=== PATIENT | male | born 1995 | race Caucasian/White ===

== ENCOUNTER 2018-03-06 14:17 | Emergency (ER) | payer BC ==
--- NOTE | 2018-03-06 14:33 | EDPHY ---
General Time Seen by Provider: 03/06/18 14:21 Narrative: CHIEF COMPLAINT: Manic HISTORY OF PRESENT ILLNESS: Patient presents by EMS and is seen at time arrival. He is reportedly on M1 hold due to manic behavior. He arrives from [facility] having been evaluated. He states that he has felt manic since this morning. He says that he has been taking his medications as prescribed other than Adderall. He is not taking this for 2 days. He denies any hallucinations He denies any thoughts of harm himself or others. He has reportedly recently be started on risperidone feels this is not working for him. He denies any lithium use. He does report cocaine use 3 days ago, marijuana use this morning. He states that his grandmother took him to [facility] location and then [facility] for help this morning. No modifying factors. No other associated complaints. PSYCHIATRIC DIAGNOSES: Bipolar disorder PRIOR PSYCHIATRIC EVALUATIONS: Multiple M1/DETAINER: By [facility] HRBP just prior to arrival REVIEW OF SYSTEMS: Ten systems reviewed and are negative unless otherwise noted in the HPI EXAMINATION General Appearance: Alert, no distress Head: normocephalic, atraumatic Eyes: Pupils equal and round, no conjunctival pallor or injection ENT, Mouth: Mucous membranes moist Neck: Normal inspection, supple, non-tender Respiratory: Lungs are clear to auscultation Cardiovascular: Regular rate and rhythm. No murmur. Gastrointestinal: Abdomen is soft and nontender Back: non-tender, no bony abnormalities Neurological: GCS 15. A&O, nonfocal, normal gait Skin: Warm and dry, no rash. Tattoos present. Extremities: Nontender, no pedal edema Psychiatric: Flat affect. Denies SI. Denies HI. Reports that he has been feeling manic today. Reports medication compliance. DIFFERENTIAL DIAGNOSES: Including but not limited to bipolar disorder, schizophrenia, schizoaffective, dany, medication noncompliance MDM: 2:30 p.m. M1 hold due to reported manic behavior and medication noncompliance. The patient does feel that he is in a manic episode but denies any suicidal ideation or homicidal ideation. He has provide a urine sample. He has had an evaluation performed [facility] and is here for medical clearance. He is cooperative thus far. 3:30 p.m. Patient cleared for evaluation. 4:[address] Garrison has assume care the patient at this time. Please see his note for further disposition. He is pending mental health evaluation and placement. SUPERVISION: Patient was independently examined, but I discussed the case with my secondary supervising physician Dr. Garrison ([facility]) Medical Decision Making: I assumed care of the patient at 4:43pm pending psychiatric disposition. The patient did receive oral Zyprexa and Ativan for increasing agitation. The patient was evaluated by the mental health team. He is not able to be admitted to [address] [place] [address]. They are looking for alternative psychiatric admission options at 7:00 p.m.. The patient will be turned over to Dr. Ramos at 8pm pending psychiatric disposition. (Yemi Garrison) I assumed care of this patient from Dr. Parish at 7:00 a.m.. Placement is pending. Patient underwent re-evaluation by the mental health team. The recommendation continues to be placement in a psychiatric facility. Patient became agitated again during the day today and received another dose of Zyprexa and Ativan with subsequent calming. The time of my evaluation he is cooperative and appropriate. He has no physical complaints. Lungs are clear and heart is regular. I was notified that he has been accepted at [address] [place] [address]. Transfer is arranged. I have signed the EMTALA form. (Donna Brito) - Objective Vital Signs: Initial Vital Signs Temperature (C) 36.8 C 03/06/18 14:18 Heart Rate 98 03/06/18 14:18 Respiratory Rate 20 03/06/18 14:18 Blood Pressure 160/90 H 03/06/18 14:18 O2 Sat (%) 96 03/06/18 14:18 O2 Delivery Mode Room Air Home Medications: Medication Instructions Recorded Adderall 10 MG (*) 03/06/18 Divalproex 03/06/18 OLANZapine 03/06/18 Laboratory Results: Laboratory Results 03/06/18 14:40 03/06/18 14:40 Medications Given: Nicotine Polacrilex (Nicorette) 2 mg B PRN PRN PRN Reason: Nicotine Withdrawal Stop: 09/03/18 03:59 Last Admin: 03/07/18 10:43 Dose: 2 mg Discontinued Medications Lorazepam (Ativan) 1 mg PO EDNOW ONE Stop: 03/06/18 17:25 Last Admin: 03/06/18 17:48 Dose: 1 mg Lorazepam (Ativan) 1 mg PO EDNOW ONE Stop: 03/07/18 11:45 Last Admin: 03/07/18 11:48 Dose: 1 mg Nicotine (Nicoderm Cq) 14 mg TD EDNOW ONE Stop: 03/06/18 15:55 Last Admin: 03/06/18 16:09 Dose: Not Given Nicotine (Nicoderm Cq) 21 mg TD EDNOW ONE Stop: 03/06/18 16:00 Last Admin: 03/06/18 16:04 Dose: 21 mg Nicotine (Nicoderm Cq) 21 mg TD EDNOW ONE Stop: 03/07/18 07:49 Last Admin: 03/07/18 07:55 Dose: 21 mg Olanzapine (Zyprexa Zydis) 5 mg PO EDNOW ONE Stop: 03/06/18 17:24 Last Admin: 03/06/18 17:40 Dose: 5 mg Olanzapine (Olanzapine) 5 mg PO ONCE ONE Stop: 03/07/18 11:46 Last Admin: 03/07/18 11:48 Dose: 5 mg Departure - Departure Disposition: [facility] IP Clinical Impression: Manic behavior Condition: Good Referrals: Patient,NotPresent [Unknown] - As per Instructions
[2018-03-06 15:21] LABS: PLATELET COUNT 255 10^3/uL (150-400)
[2018-03-06] MEDS ORDERED: NICOTINE 14 MG/24 HR PATCH TD ONE (15:54)
[2018-03-06] MEDS ORDERED: NICOTINE 21 MG/24 HR PATCH TD ONE (15:59)
[2018-03-06] MEDS ORDERED: OLANZapine DISINTEGR 5 MG TAB PO ONE (17:23)
[2018-03-06] MEDS ORDERED: LORazepam 1 MG TAB PO ONE (17:24)
[2018-03-07] MEDS ORDERED: NICOTINE POLACRILEX 2 MG GUM B ONE (03:34)
[2018-03-07] MEDS: NICOTINE POLACRILEX 2 MG GUM B PRN ×2 (04:08→10:43)
[2018-03-07] MEDS ORDERED: NICOTINE 21 MG/24 HR PATCH TD ONE (07:48)
[2018-03-07] MEDS ORDERED: LORazepam 1 MG TAB PO ONE (11:44)
[2018-03-07] MEDS ORDERED: OLANZapine 5 MG TAB PO ONE (11:45)
--- NOTE | 2018-03-07 14:39 | ASMTTLCEVL ---
TLC Evaluation - Basic Information Evaluation Start Date and 03/07/2018 12:00 PM Time Hospital Status Answers: M1 Hold 72-hr M1 Hold Start Date 03/06/2018 02:25 PM and Time Patient statement Notes: Information was obtained from [facility] report since pt was evaluated at the [facility], sent to the [facility] ED for medical clearance and placement. Narrative Notes: Pt is a 22 year old homeless, male (living out of his car or couch surfing at various family members homes. Pt was brought to the [facility] by [employer] after pt drove car to [facility] location requesting change in medications. Pt reports he has been "manic" since beginning of January. Pt had reported chronic auditory hallucinations and visual hallucinations, trouble sleeping and loss of appetite. Grandmother had reported to [facility] vp rheumatology pt had manic episodes two years ago when he was placed on a M1 hold and was hospitalized at inpatient in [place]. Prior to [place] admission pt had presented with the following symptoms of anger, racing thoughts, impulsive behavior, job loss, not sleeping or eating and 5 criminal charges. Pt had reported similar symptoms of anger issues, racing thoughts, impulsive behavior, job loss, not sleeping and eating and facing 3 criminal charges. Pt had expressed feeling worried about causing harm to self and others (pt denied plan to harm self or others, denied any intention but affirms having access to a gun but did not tell [facility] worker where gun was currently located). Grandmother had also reported pt. was spending excessive amount of money and recently took out a 5,000.00 loan to buy a computer and cannot presently locate computer and has been off his medications. Pt's utox was positive for marijuana , BAL was zero. It was reported when pt is in a manic state he will experience chronic auditory hallucinations. Pt had stated these hallucinations give him directions such as 'clean his room, stay at this hospital or go somewhere. Pt had stated these voices are usually the same and never encourage him to be harmful to self or others or destructive. Per grandmother's report pt was seeing a Psychiatrist earlier this year who didn't think pt was bipolar and had diagnosed him with ADD/ADHD. Pt had seen Psychiatrist, Marcial Thompson [phone] last week but fired pt due to escalation after refusing to prescribe Xanax and another medication. Pt had filled his Adderall Rx in the beginning of January but apparently by mid January he was out of Adderall. Per [facility] report pt was exhibiting difficulty with tangential thoughts, anxiety, was hyper vigilant and had oppositional thoughts content. He reported problems with anger issues and stated he becomes frustrated easily. He denied anger leading to aggression or violence. Per MD ED report pt had presented to [facility] ED per EMS on a M1 hold from the [facility] due to manic behavior. Pt had stated he has felt manic since this morning. Pt stated he has been taking his medications as prescribed other than Adderall. He has not apparently taken Adderall in the past 2 days. Pt denies hallucinations, thoughts of harm to self or others. Pt reportedly recently started on Risperidone feels this in not working for him. Pt denied lithium use. Pt reported to ED that he used cocaine 3 days ago, and marijuana use morning of 03/06/18. Pt was given Olanzapine and Lorazepam in the ED. Diagnosis History Notes: Grandmother had indicated pt has a hx of bipolar diagnosis. Prior suicide attempts Notes: There was no hx provided of past suicide attempts and no current report of suicide intention. Prior hospitalizations Notes: Pt reported when he was last hospitalized 2 years ago the experience was horrible and he is currently worried about being over medicated and sedated while an inpatient. Pt was an inpt in [place] from 03/06/16-03/15/16. Treatment Responses Notes: Unknown. History of violence Notes: -There was no report of any hx of violence towards others however pt does have a hx of making aggressive postures towards others and easily has outbursts. Pt is unable to stay with his grandmother because of his behaviors towards her in the past. Pt does have a hx of past aggressive behaviors when he is manic. Psychiatrist: Marcial Thompson Medications (name, dosage, route, freq uency) Notes: Adderall 10 mg, Divalproex, Olanzapine Allergies/Reaction Notes: No known allergies or drug interactions. Sleep Notes: Pt had reported to [facility] worker that he had slept 8-10 hours last night but later inconsistently reported he had not slept in days. Appetite Notes: Pt reports initially that he hadn't eaten in weeks and later stated he ate yesterday. Pt was observed to eat food he was provided in the ED. Medical/Surgical history Notes: No known medical problems or surgical hx.except per step father's report pt. had a seizure on 03/05 after taking 2-3 times prescribed amount of Risperdal to "catch up." Substance use history (frequency, intensity, his tory, duration) Notes: Pt had participated in the past in a substance abuse program, (name not available). Pt had reported to [facility] worker he has a hx of using everything but primarily cocaine, marijuana and opioids . Pt later reported he "occasionally uses cocaine. Marijuana is his drug of choice, pt reports smoking about 1-2 bowls per day because it "helps him sleep." Family had indicated they are concerned pt has an addiction to marijuana and possibly is abusing other substances. Family composition Notes: Family composition is unknown. Pt's grandmother appears to be the primary dice table person. Need for family Answers: Yes participation in patient's care Family psychiatric/substance abuse history Notes: Family hx of substance abuse or mental health problems was not available. Developmental history Notes: There was no report of any developmental delays however additional investigation is recommended. Abuse concerns Answers: None Marital status/children Notes: Pt is single and has no children. Living situation Notes: Pt is currently homeless, living in his car. Pt had expressed not feeling safe in the community. Sexual history/orientation Notes: Pt identifies himself as a heterosexual but there was no report of any relationship. Peer support/family strengths Notes: Pt appears to have limited support system. Education level/history Notes: No challenges or barriers were identified related to education. Pt completed high school and about 1 year of college. 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 Pt recently lost his job at [employer] due to anger issues. Notes: No hx. Legal Notes: Pt has a hx of 5 criminal charges during his first manic episode two years ago. Pt reports he has 3 pending charges for DUID (driving under the influence of marijuana) over the past month. It was reported pt has a hx of poor compliance with probation requirements for multiple arrests. Buddhist/Spiritual Notes: There was no report of any anabaptism or spiritual beliefs that would impact his treatment. Leisure Notes: Information was not available about leisure interests. Collateral Notes: Collateral inform was obtained from [facility] report. Patient's strengths Answers: Intelligent (Please select at least TWO strengths): Supportive Family Willingness TLC Evaluation - Mental Status Exam Appearance: Answers: Appropriate Eye Contact: Answers: Appropriate for Culture Mood: Answers: Euthymic Irritable Affect: Answers: Anxious Distracted Hyperactive Behavior: Answers: Cooperative Restless Speech: Answers: Coherent Thought Process: Answers: Disorganized Distracted Racing Thoughts Insight: Answers: Poor Judgement: Answers: Poor Manic Signs/Symptoms Answers: Distractibility Impulsivity Irritability Mood Swings Racing Thoughts Spending Sprees Depression Answers: Difficulty Concentrating Signs/Symptoms: Diminished Interest Diminished Pleasure Psychomotor Agitation Withdrawn Anxiety Signs/Symptoms Answers: Generalized Anxiety Hallucinations: Answers: Auditory Current Stage of Change Answers: Contemplation Pt reported to have Answers: Yes suicidal/self-injuring ideation/behavior? Pt reported to be making Answers: No suicidal/self-injuring threats? Pt reported to have Answers: No aggression/assault ideation/behavior? Pt exhibits inability to Answers: No care for self/grave disability? Ideation/behavior is Answers: No chronic? Patient has a specific Answers: No plan? Pt has access to means to Answers: Yes execute the plan? Ideation has Answers: Yes delusional/hallucinatory content? History of Answers: No suicidal/self-injuring ideation, behavior, or threats? History of Answers: Yes aggressive/assaultive ideation, behavior, or threats? History of serious Answers: No physical harm to self/others while in treatment setting? [facility] Evaluation - Suicide/Homicide Risk Suicide Risk Factors: Answers: Access to Firearms Agitation Alcohol/Heavy Drug Use Anxiety/Panic, Severe Bipolar Disorder Financial Difficulties Global Insomnia Impulsivity Inadequate Social Support Lack of Social Support Lack/Loss of Employment Legal Difficulties Rapid Mood Shifts Single Unstable Living Situation Homicide/violence risk Answers: Heavy Drug Use factors: Possession/Access to Gun Current Suicidal Answers: No Ideation? Current Suicidal Ideation Answers: No in the Past Month? Suicide Internal Answers: Frustration Tolerance Protective Factors: Suicide External Answers: Other Notes: unable to identify Protective Factors: Ranking of patient's Answers: Moderate suicidal risk: Ranking of patient's Answers: Moderate homicidal risk: [facility] Evaluation - Wrap-up AXIS I Diagnosis (include DSM-V and ICD-10 codes), must also be entered in [employer], which is the source of truth. Notes: Bipolar I disorder, current or most recent episode manic, unspecified F31.9 296.4 Cannabis Use Disorder, moderate 304.30 (F12.20) Evaluation End Date and 03/07/2018 02:30 PM Time (HH:MM): Date Signed: 03/07/2018 02:30 PM Electronically Signed By:Nathaly North
--- NOTE | 2018-03-07 14:40 | ASMTTCLDSP ---
TLC Discharge Disposition Disposition: Answers: Admit Disposition Notes: Notes: In [facility] consultation with [facility] supervisor tank storage Gela Randall it was determined pt meets criteria for inpt hospitalization. TLC consulted with on-call psychiatrist, Augustine Cisneros MD, both concurred that pt does appear to meet 27-65 criteria requiring psychiatric hospitalization as pt does appear to be an imminent risk of harm to self/others/gravely disabled due to a mental illness condition. Was patient given the Answers: Yes Inpatient Behavioral Health Prohibited Belongings List while in the ED? For inpatient Dr. Augustine Cisneros admission, the following psychiatrist agreed to accept patient for admission to Behavioral Health ([facility]): Type of Hold: Answers: M1/72-hour Hold Hold initiated by: Answers: Other Notes: [facility] APPLICATION SPECIALIST Date Signed: 03/07/2018 02:32 PM Electronically Signed By:Nathaly North
[2018-03-07 15:58] VITALS: BP 127/75
== END 2018-03-07 15:58 ==
LOC: EDUNIT#
DX: F30.9 Manic episode, unspecified (principal); Z91.14 Patient's other noncompliance with medication regimen
CPT/HCPCS: 80305; G0480

== ENCOUNTER 2018-03-07 16:20 | Inpatient (IN) | payer BC ==
[2018-03-07] MEDS: NICOTINE POLACRILEX 2 MG GUM B PRN ×2 (19:16→21:15)
[2018-03-07] MEDS ORDERED: MAG HYDROX/AL HYDROX/SIMETH 30 ML UDCUP PO PRN (19:26)
[2018-03-07] MEDS ORDERED: ACETAMINOPHEN 325 MG TAB PO PRN (19:26)
[2018-03-07] MEDS ORDERED: MAGNESIUM HYDROXIDE 30 ML UDCUP PO PRN (19:26)
[2018-03-07] MEDS: LORazepam 0.5 MG TAB PO PRN (20:53)
[2018-03-07] MEDS: MELATONIN 3 MG TAB PO PRN (21:32)
[2018-03-08] MEDS: LORazepam 0.5 MG TAB PO PRN ×2 (05:43→14:41)
[2018-03-08] MEDS: NICOTINE POLACRILEX 2 MG GUM B PRN ×6 (05:43→20:38)
--- NOTE | 2018-03-08 08:18 | ASMTBHMTP ---
Master Treatment Plan Master Treatment Plan Answers: Depressed Mood with for: Suicidal Ideation Date: 03/07/2018 Diagnosis on Admission: BiPolar Disorder Expected length of stay: 3-5 days Reason for admission: Notes: Client suggested that he went to "seek help after getting escalated with family members yesterday." Client states that he has anger problems, etc. Client notes that he has out-side providers and would like to change them because he does not like the Risperdal and believes the Ativan is helping him. Also, client suggests that he does not need to be on this unit. Patient's stated presenting problems: Notes: "because of my anger." Patient's goals for treatment: Notes: "to get back on my meds or different meds that work." Patient's strengths: Notes: "some" Identify supports outside of hospital: Notes: "family and friends all over the state." Discharge criteria: Notes: Suicidal Ideation will resolve and patient will have a plan to safely manage recurrent suicidal ideation. Initial disposition plan/considerations: Notes: "to get out and go and live in my car or with family members." Master Treatment Plan Required Signatures Psychiatrist signature: Answers: Psychiatrist: RN on-shift signature: Answers: RN: Patient signature: Answers: Patient: Date Signed: 03/08/2018 08:17 AM Electronically Signed By:Álvaro Mckeon
[2018-03-08] MEDS: OLANZapine DISINTEGR 10 MG TAB PO PRN ×2 (09:29→14:10)
--- NOTE | 2018-03-08 13:15 | BCON ---
INTERNAL MEDICINE CONSULTATION DATE OF CONSULTATION: 03/08/2018 REFERRING PHYSICIAN: Augustine Cisneros MD REASON FOR REFERRAL: Medical clearance for inpatient behavioral health stay. HISTORY OF PRESENT ILLNESS: This patient was brought to the emergency room by his grandmother. He had previously been seen at a Mental Health walk-in clinic. He had been manic. He was evaluated by the Mental Health team and admitted for further psychiatric care. He currently complains of a feeling of ear fullness, more on the right than the left. He also has back pain and says he uses medical marijuana for it. Otherwise, he is without any acute medical complaints. PAST MEDICAL HISTORY: Bipolar disorder. PAST SURGICAL HISTORY: He has had no history of surgeries. MEDICATIONS: Prior to admission: 1. Olanzapine. 2. Divalproex. 3. Adderall. 4. There is a report in the medical record of recent start of risperidone. ALLERGIES: There are no known medical allergies. There is an allergy to cat dander listed. SOCIAL HISTORY: He is single. He is homeless. He has been staying either in his car or with friends or family. He is a smoker and he is a regular marijuana user. He recently lost a job at [employer]. FAMILY HISTORY: Noncontributory. REVIEW OF SYSTEMS: Other than as in HPI, a 10-point review of systems was conducted and was negative. PHYSICAL EXAM: VITAL SIGNS: Blood pressure 124/78, heart rate 94, respiratory rate 16, oxygen saturation 97% on room air, temperature 36.8 degrees centigrade. GENERAL: This is a well-nourished, well-developed man, dressed in street clothes, sitting on his bed. Cooperative and in no acute distress. HEENT: Extraocular movements are intact. Pupils are equal, round, and reactive to light. Mucous membranes are moist. Dentition is in good condition. He has an uncrowded airway, Mallampati class 1. There is moderate cerumen in both external auditory canals, more so on the right than the left. NECK: Supple. HEART: There is a regular rate and rhythm with no murmurs, rubs , or gallops. LUNGS: Clear to auscultation bilaterally. ABDOMEN: Benign. EXTREMITIES: There is no cyanosis, clubbing, or edema. NEUROLOGIC: He is alert and oriented x3. Cranial nerves 2-12 are grossly intact. Hearing is intact to finger rub bilaterally. There is no focal weakness. Sensation is intact to light touch and gait is within normal limits. LABORATORY STUDIES: Two days ago in the emergency room, CBC was completely within normal limits. Serum chemistry was normal. Toxicology screen in the serum was negative for ethyl alcohol and in the urine was non-negative for marijuana, but negative for other substances of abuse. ASSESSMENT AND RECOMMENDATIONS: 1. Mental health issues, pending further evaluation and management per Psychiatry and the Mental Health team. 2. Cerumen. I have ordered carbamide peroxide to soften the cerumen and allow it to come out of his ears more easily. 3. Back pain. Acetaminophen is on his medication list, and this is appropriate to treat his pain. 4. Tobacco dependence syndrome. He was encouraged to quit smoking. I see no medical contraindications to this patient's continued stay on the Inpatient Behavioral Health Unit or to any psychiatric medications or procedures. Thank you very much for including me in the care of this patient, and please do not hesitate to contact me or the Hospitalist Service should there be need for further medical evaluation. /[id number]/MODL MTDD
[2018-03-08] MEDS ORDERED: ARIPiprazole 10 MG TAB PO SCH (13:45)
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
[2018-03-08] MEDS: GABAPENTIN 300 MG CAP PO SCH ×2 (15:47→21:12)
[2018-03-08] MEDS ORDERED: OLANZapine DISINTEGR 10 MG TAB PO SCH (21:00)
[2018-03-08] MEDS ORDERED: DIVALPROEX ER 500 MG TAB PO SCH ×2 (21:00)
[2018-03-08] MEDS: CARBAMIDE PEROXIDE 15 ML OTIC.BTL EACHEAR SCH (21:12)
--- NOTE | 2018-03-08 21:29 | PDMN ---
Medical Necessity Medical necessity: Pt meets inpt criteria per MD order and [facility] [id number], Bipolar Disorders, Adult: Inpatient Care, 4 days. Est LOS>2MN for management of Bipolar 1 disorder, severe, w/anxious stress distress and mood-congruent psychotic features complicated by substance use, on M1 Hold requiring inpt treatment for safety, crisis stabilization, and medication evaluation.
[2018-03-08] MEDS: MELATONIN 3 MG TAB PO PRN (22:19)
[2018-03-09] MEDS: NICOTINE POLACRILEX 2 MG GUM B PRN ×4 (06:46→10:48)
[2018-03-09 07:12] VITALS: BP 123/66
--- NOTE | 2018-03-09 07:50 | BDS ---
REASON FOR ADMISSION: From the ED note dated 03/06/2018, patient presented to the ED by EMS. The patient presented on an M1 hold after being evaluated at [facility]. The patient reported feeling very manic since this morning. The patient reported that his medications prescribed were Adderall and he had not taken this for 2 days. The patient denied any hallucinations. The patient denied any thoughts to harm himself or others. The patient reported he was recently started on risperidone, but felt like it was not working for his bipolar symptoms. The patient reported using cocaine 3 days ago and using marijuana this morning. The patient reported no other associated complaints in the ER. The patient was admitted involuntarily on an M1 hold due to being gravely disabled due to a mental illness. The patient was admitted for safety, crisis, stabilization and medication evaluation. 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 ADMISSION PHYSICAL EXAM: The patient was seen for an internal medicine consultation by Dr. Palomo on 03/08/2018, for medical clearance for inpatient Behavioral Health stay. Dr. Palomo reported he saw no medical contraindications to the patient's continued stay on the inpatient behavioral health unit or to any psychiatric medications or procedures. For further details, please refer to Dr. Palomo's note dated 03/08/2018. ADMISSION LABS: CBC from 03/06/2018, within normal limits. Chemistry from 10/2017, within normal limits. Liver function test from 03/06/2018, within normal limits. Fasting lipid panel from 03/06/2018, within normal limits. Hemoglobin A1c from 03/06/2018, within normal limits. Toxicology screen from , non negative for THC and negative for all other substances of abuse and negative for ethyl alcohol. Valproic acid on 03/08/2018, 90.9, and this is at the dose of Depakote ER 1000 mg daily. MAJOR PROCEDURES OR TESTS: None. HOSPITAL COURSE: The most prominent symptoms and behaviors while the patient was here were irritability, moderate anxiety. Patient was agitated and intrusive upon admission. Target symptoms during hospitalization: Mood instability. Treatment modalities utilized were milieu and group therapy. Depakote ER 1000 mg p.o. at bedtime was continued to target mood symptoms, was tolerated with no report of side effects and with good response. The patient reported this is his outpatient dose. The patient reported that he was taking Depakote ER 500 mg p.o. twice daily prior to this hospitalization and requested the medication to be dosed all at bedtime for improved adherence. The patient reported history of psychosis during periods of mood instability and reported he was recently started on Risperdal, however, the patient reported that the medication made him feel "dopey" and reported he was not taking the medication. The patient agreed to a trial of Zyprexa 10 mg p.o. at bedtime to target mood symptoms and psychosis. Medication was tolerated with no report of side effects and with good response. The patient did report that he has been on Zyprexa in the past with good response. The patient also reported recently using cocaine 3 days prior to his presentation at the ER prior to this admission , the patient reported abusing Adderall and patient also reported daily marijuana use since the age of 12, and patient reported using marijuana prior to his admission here. Upon admission, the patient asked for a prescription of Adderall and reported that was one of his main reasons or chief complaints for hospitalization was to have his medications evaluated including getting a prescription of Adderall. The patient was provided education regarding the risk of using cocaine, abusing Adderall and using cannabis as this can exacerbate his underlying bipolar disorder symptoms. The patient responded well to this education. Patient requested Ativan several times throughout his hospitalization and requested a prescription for Ativan at time of discharge. The patient reports he has improved since admission. States to be in stable condition. Feels safe to discharge and he contracts for safety. Patient's response to treatment was good. There were no adverse or unexpected results of treatment. The patient was safe throughout his stay, active in treatment, engaged in groups, and was appropriate with staff and other patients. The patient met with the entire treatment team including this WHITE WASHER, the psychiatrist, the unit child care assistant and therapist prior to discharge to discuss the patient's ongoing treatment and discharge plan. The treatment team consensus is the patient is in stable condition and is safe to discharge today. CONDITION AT DISCHARGE: Patient is in stable condition and is no longer a danger to self or others, and is not gravely disabled due to mental illness. Patient is no longer in need of inpatient level of care, and can be safely and effectively treated within the community. The patients level of risk at time of discharge is low based on the risk assessment below following this discharge summary. MSE: The patient is casually dressed and with good hygiene, and looks stated age. Patient is sitting, posture is upright, and position is relaxed. Patient appears awake, alert, and responds appropriately and reasonably during interview. Patient is engaged, relates well to interviewer, and emotional facial expression is appropriate to situation and changes appropriately with topic. Patient is cooperative, makes comfortable eye contact, and movements are voluntary, deliberate, coordinated, and smooth and even with no inappropriate movements. Patient makes laryngeal sounds effortlessly and shares conversation appropriately; pace of conversation is appropriate, and stream of talking is fluent; articulation is clear and understandable; word choice is effortless and appropriate for education level; completes sentences, occasionally pausing to think; rate and volume are appropriate for interview and setting. Patient reports mood as euthymic. Patients affect is stable with full variable range, congruent with mood, and appropriate to speech and circumstances. Patient has linear and logical thinking, with no loose associations, tangential thought, thought blocking, concrete thinking, or any other signs of formal thought disorder. Patient denies suicidal and homicidal ideation, and denies hallucinations and delusions. Patient appears to be a reliable historian with sound judgement and good insight into current condition. Patient has no apparent dysfunction in recent or remote memory noted , and no evidence of gross cognitive dysfunction noted at any point during the interview. DISCHARGE DIAGNOSES: Bipolar I disorder, current or most recent episode manic with anxious distress and mood-congruent psychotic features; cannabis use disorder, severe; alcohol consumption binge drinking; drug-seeking behavior. CURRENT MEDICATIONS: After reviewing options, risks and benefits, the patient requests prescriptions for Zyprexa 10 mg p.o. at bedtime for 30 days and gabapentin 300 mg p.o. three times daily for 30 days. The patient reports he has a prescription for Depakote ER 1000 mg p.o. at bedtime, and does not require a prescription for that medication at this time. At the time of discharge prescriptions are reviewed with the patient to ensure accuracy and patient understanding. DISPOSITION: The patient left hospital independently and voluntarily and plans to return to live with his ex stepfather. The patient also plans to return to his work at [employer]. FOLLOWUP: student teaching coordinator reports the appropriate outpatient follow-up services have been established and outpatient appointments have been scheduled. The patient received written instructions with times and dates of outpatient follow-up appointments. The following follow-up recommendations were provided to the patient at discharge: Continue psychotropic medications as prescribed and attend appointments as scheduled. Report any side effects to a psychiatric outpatient provider, a primary care provider, or other health animal care taker. Address any questions or problems concerning the psychotropic medications with a psychiatric outpatient provider, a primary care provider, or other health animal care taker. Contact [facility] or [facility], or go to the nearest emergency room, if you are ever a danger to yourself/others, or unable to care for yourself. As soon as possible, establish a routine medication management treatment with a psychiatric provider, establish routine therapy appointments, and follow-up with a primary care provider. SUBSTANCE ABUSE BRIEF INTERVENTION: Brief intervention regarding the risks of cannabis, cocaine/stimulant, and alcohol abuse is provided to patient with goal to reduce the risk of harm that could result from the continued use of cannabis , cocaine/stimulant, and alcohol abuse with the general aim to investigate the problem, raise awareness of problem, develop a solution with the patient, recommend a specific change or activity, and motivate the patient toward change. Assess substance abuse behavior and give supportive advice about harm reduction, recommend a reduction in hazardous/at-risk consumption patterns, and facilitate referrals for additional specialized treatment with child care assistant. Intermediate goal is for the patient to quit use of cannabis and attend OP substance abuse treatment; groups and individual therapy. Intervention focus on intermediate goals to allow for more immediate success in the treatment process to keep the patient motivated. Review following with patient: Cannabis use risks: Short-term use: impaired short-term memory, impaired motor coordination, altered judgement, in high doses paranoia and psychosis. Long-term use addiction, diminished life satisfaction and achievement, symptoms of chronic bronchitis, and increased risk of chronic psychosis disorders if predisposition to such disorders. In withdrawal anger, aggression irritability, anxiety and nervousness, decreased appetite or weight loss, restlessness, and sleep difficulties with strange dreams. Alcohol/Binge Drinking risks: short-term: injuries, violence, alcohol poisoning, risky sexual behaviors. Long-term: high blood pressure, stroke, liver disease, digestive problems, cancer, learning and memory problems, depression and anxiety, social problems, and alcohol dependence. Cocaine use risks: Short-term: erratic and violent behavior, panic attacks, paranoia, psychosis; heart rhythm problems, heart attack; stroke, seizure, coma. Long-term: Loss of sense of smell, nosebleeds, nasal damage and trouble swallowing from snorting; infection and of bowel tissue from decreased blood flow; poor nutrition and weight loss ; lung damage from smoking. LEGAL COURSE: The patient was admitted on an M1 hold for involuntary inpatient psychiatric hospitalization. The patient became voluntary during his stay and patient discharged independently and voluntarily from the hospital. ATTITUDE AT TIME OF DISCHARGE: The patient reports "I feel much calmer and getting some good sleep and feel ready to discharge." The patient's attitude was positive at time of discharge and patient reports looking forward to discharging today. The patient reports he feels safe to discharge, is no longer a danger to himself or others, is in stable condition and contracts for safety. The patient states he will continue medications as prescribed and establish medication management treatment with an outpatient provider after discharge. The patient reports he understands the information that has been provided to him and he understands, accepts and agrees to psychotropic medications. Patient describes internal protective factors as the coping skills he has learned while hospitalized here and he plans to continue to practice these coping skills after discharge. The patient reports external protective factors as his family. The patient describes future goals as going back to finish his college degree. The patient reports he has completed his wellness plan and reviewed his wellness plan with his nurse. The patient states his family and friends look forward to him discharging today. The patient describes looking forward to getting back to work after discharge. LABS AND STUDIES: There were no pending labs or studies at time of discharge. ADVANCED DIRECTIVES: There were no advance directives on file, and patient was a full code during hospitalization. The following psychotropic medication treatment informed consent and recommendations were provided to the patient at time of discharge. Patient reports he understands, accepts, and agrees to the information that has been provided. PSYCHOTROPIC MEDICATION TREATMENT INFORMED CONSENT and RECOMMENDATIONS: Review nature of condition, diagnosis, and prognosis. Review nature and purpose of psychotropic medication treatment. Review type of psychotropic medications being prescribed. Review risk and benefits of psychotropic medication treatment. Review probable length of time will need to take medications. Review risk and benefits of not undergoing psychotropic medication treatment. Review alternative treatments to psychotropic medications. Review psychotropic medications contraindications, side effects, and importance of reporting any side effects to a psychiatric provider, primary care provider, or other health animal care taker. Review importance of her asking a psychiatric provider or primary care provider any questions or problems concerning the psychotropic medications. Review safety plan and the importance to contact [facility] or [facility] , or go to the nearest emergency room, if ever a danger to yourself/others, or unable to care for yourself. Recommend upon discharge to establish routine medication management treatment with a psychiatric provider, establish routine therapy appointments, and follow-up with a primary care provider. Verify patient understands, accepts, and agrees to the information that has been provided. /[id number]/MODL MTDD
[2018-03-09] MEDS: GABAPENTIN 300 MG CAP PO SCH (08:37)
[2018-03-09] MEDS: CARBAMIDE PEROXIDE 15 ML OTIC.BTL EACHEAR SCH (08:37)
== END 2018-03-09 11:10 | disposition home or self-care (01) | DRG 885 ==
LOC: BBEH 16:20
PROVIDERS: ADMIT Psychiatry & Neurology Psychiatry; ATTEND Psychiatry & Neurology Psychiatry
DX: F31.2 Bipolar disorder, current episode manic severe with psychotic features (principal); T43.626A Underdosing of amphetamines, initial encounter; F12.959 Cannabis use, unspecified with psychotic disorder, unspecified; F10.10 Alcohol abuse, uncomplicated; Z76.5 Malingerer [conscious simulation]; Z59.0 Homelessness; H61.23 Impacted cerumen, bilateral; F17.200 Nicotine dependence, unspecified, uncomplicated

== ENCOUNTER 2018-03-11 11:48 | Emergency (ER) | payer BC ==
[2018-03-11 11:54] VITALS: BP 135/79
== END 2018-03-11 12:36 | disposition left against medical advice (07) ==
DX: Z53.21 Procedure and treatment not carried out due to patient leaving prior to being seen by health care provider (principal)

== ENCOUNTER 2018-03-11 18:44 | Emergency (ER) | payer BC ==
[2018-03-11 18:57] VITALS: BP 117/64
--- NOTE | 2018-03-11 19:22 | EDPHY ---
H & P Stated Complaint: Wants readmission to [facility];denies SI/HI;here earlier LWBS Source: Patient - Personal History Current Tetanus Diphtheria and Acellular Pertussis (TDAP): Yes - Medical/Surgical History Hx Asthma: No Hx Chronic Respiratory Disease: No Hx Diabetes: No Hx Cardiac Disease: No Hx Renal Disease: No Hx Cirrhosis: No Hx Alcoholism: Yes Hx HIV/AIDS: No Hx Splenectomy or Spleen Trauma: No Other PMH: HTN, BIPOLAR - Social History Smoking Status: Current every day smoker Time Seen by Provider: 03/11/18 19:22 HPI/ROS: HPI CHIEF COMPLAINT: "I am having worsening Hallucinations" HISTORY OF PRESENT ILLNESS: 22-year-old male, history of Bipolar, presents emergency room stating that he would like to speak to Psychiatry as he is having increasing hallucinations. He has been hearing things. He denies SI or HI. He feels paranoid. Feels anxious. Was recently hospitalized and [facility] and discharged 2 days ago. Past Medical History: Schizophrenia Past Surgical History: No recent surgery Social History: He smokes marijuana denies meth. Family History: Noncontributory ROS REVIEW OF SYSTEMS: 10 Systems were reviewed and negative with the exception of the elements mentioned in the history of present illness. Exam Constitutional nontoxic triage nursing summary reviewed, vital signs reviewed, awake/alert. Eyes normal conjunctivae and sclera, EOMI, PERRLA. HENT normal inspection, atraumatic, moist mucus membranes, no epistaxis, neck supple/ no meningismus, no raccoon eyes. Respiratory clear to auscultation bilaterally, normal breath sounds, no respiratory distress, no wheezing. Cardiovascular rate normal, regular rhythm, no murmur, no edema, distal pulses normal. Gastrointestinal soft, non-tender, no rebound, no guarding, normal bowel sounds, no distension, no pulsatile mass. Genitourinary no CVA tenderness. Musculoskeletal no midline vertebral tenderness, full range of motion, no calf swelling, no tenderness of extremities, no meningismus, good pulses, neurovascularly intact. Skin pink, warm, & dry, no rash, skin atraumatic. Neurologic awake, alert and oriented x 3, AAOx3, moves all 4 extremities equally, motor intact, sensory intact, CN II-XII intact, normal cerebellar, normal vision, normal speech. Psychiatric paranoid, denies SI or HI. Heme/Lymph/Immune no lymphadenopathy. Differential Diagnosis: Includes but is not limited to in a particular order acute psychosis, schizophrenia, paranoia, drug intoxication Medical Decision Making: Plan for this patient blood draw for medical clearance , drug screen. Will have mental health eval. Re-evaluation: Patient signed over to Dr. Ramos at 9:00 p.m. Shift change. Patient pending mental health evaluation with [facility]. ([place]) Constitutional: Initial Vital Signs Temperature (C) 37 C 03/11/18 18:50 Heart Rate 101 H 03/11/18 18:50 Respiratory Rate 18 03/11/18 18:50 Blood Pressure 117/64 03/11/18 18:50 O2 Sat (%) 95 03/11/18 18:50 Allergies/Adverse Reactions: cat dander Allergy (Verified 03/11/18 18:54) Home Medications: Medication Instructions Recorded Divalproex ER [Depakote ER 500 MG 1,000 mg PO HS tab 03/09/18 (*)] Gabapentin [Neurontin 300 MG (*)] 300 mg PO TID 30 Days #90 cap 03/09/18 OLANZapine [Zyprexa] 10 mg PO HS 30 Days #30 tablet 03/09/18 Medical Decision Making ED Course/Re-evaluation: 11:15 p.m. we are awaiting psychiatric evaluation. Patient has been medically cleared. Care transferred to Dr. Marie. 11:30 p.m. mental health has evaluated the patient and do not feel that he meets criteria for admission. They will take him overnight to their walk in Clinic and try to get him to a CSU in the morning. (Nemesio Ramos) - Data Points Laboratory Results: Laboratory Results 03/11/18 19:46 03/11/18 19:46 03/11/18 03/11/18 03/11/18 19:46 19:46 19:25 WBC 8.21 10^3/uL 10^3/uL (3.80-9.50) RBC 4.88 10^6/uL 10^6/uL (4.40-6.38) Hgb 14.6 g/dL g/dL (13.7-17.5) Hct 41.9 % % (40.0-51.0) MCV 85.9 fL fL (81.5-99.8) MCH 29.9 pg pg (27.9-34.1) MCHC 34.8 g/dL g/dL (32.4-36.7) RDW 12.8 % % (11.5-15.2) Plt Count 261 10^3/uL 10^3/uL (150-400) MPV 9.6 fL fL (8.7-11.7) Neut % (Auto) 52.6 % % (39.3-74.2) Lymph % (Auto) 32.3 % % (15.0-45.0) [place] % (Auto) 11.1 % % (4.5-13.0) Eos % (Auto) 3.2 % % (0.6-7.6) Baso % (Auto) 0.4 % % (0.3-1.7) Nucleat RBC Rel Count 0.0 % % (0.0-0.2) Absolute Neuts (auto) 4.33 10^3/uL 10^3/uL (1.70-6.50) Absolute Lymphs (auto) 2.65 10^3/uL 10^3/uL (1.00-3.00) Absolute Monos (auto) 0.91 10^3/uL H 10^3/uL (0.30-0.80) Absolute Eos (auto) 0.26 10^3/uL 10^3/uL (0.03-0.40) Absolute Basos (auto) 0.03 10^3/uL 10^3/uL (0.02-0.10) Absolute Nucleated RBC 0.00 10^3/uL 10^3/uL (0-0.01) Immature Gran % 0.4 % % (0.0-1.1) Immature Gran # 0.03 10^3/uL 10^3/uL (0.00-0.10) Sodium 139 mEq/L mEq/L (135-145) Potassium 3.9 mEq/L mEq/L (3.3-5.0) Chloride 107 mEq/L mEq/L (97-110) Carbon Dioxide 26 mEq/l mEq/l (22-31) Anion Gap 6 mEq/L L mEq/L (8-16) BUN 14 mg/dL mg/dL (7-23) Creatinine 0.8 mg/dL mg/dL (0.7-1.3) Estimated GFR > 60 Glucose 103 mg/dL H mg/dL (70-100) Calcium 9.1 mg/dL mg/dL (8.5-10.4) Urine Opiates Screen NEGATIVE (NEGATIVE) Urine Barbiturates NEGATIVE (NEGATIVE) Ur Phencyclidine Scrn NEGATIVE (NEGATIVE) Ur Amphetamine Screen NEGATIVE (NEGATIVE) U Benzodiazepines Scrn NEGATIVE (NEGATIVE) Urine Cocaine Screen NEGATIVE (NEGATIVE) U Marijuana (THC) Screen NON-NEGATIVE H (NEGATIVE) Ethyl Alcohol < 10 mg/dL mg/dL (0-10) Medications Given: Nicotine Polacrilex (Nicorette) 2 mg B PRN PRN PRN Reason: Nicotine Withdrawal Stop: 09/07/18 22:31 Last Admin: 03/11/18 22:43 Dose: 2 mg Discontinued Medications Nicotine (Nicoderm Cq) 21 mg TD EDNOW ONE Stop: 03/11/18 22:30 Last Admin: 03/11/18 22:32 Dose: Not Given Departure - Departure Clinical Impression: Bipolar disorder Condition: Good Instructions: Bipolar Disorder (ED) Additional Instructions: Go directly to the mental health clinic for placement at a voluntary center. Referrals: NONE *[facility],. [Primary Care Provider] - As per Instructions [facility] [Clinic] - As per Instructions
[2018-03-11 19:59] LABS: PLATELET COUNT 261 10^3/uL (150-400)
--- NOTE | 2018-03-11 21:06 | ASMTLCPROG ---
Notes Note: Notes: [facility] consulted with [facility]. Pt is an open client with [facility]. He was seen earlier today in the ED but left without a MH evaluation. Pt was discharged from [facility] on 03/09/18 after a 2 day stay. Per discussion with [facility] it was decided they will send a Mental Health clinician to complete evaluation. Pt was placed on a medical detainer in order to complete MH evaluation. Pt was not determined in need of a M1 hold by Physician. Pt has complaints of increased auditory hallucinations but is denying HI or SI. It may be determined for pt to transfer to a CSU or ATU pending [facility] evaluation to follow. [facility] was notified pt has been medically cleared and is ready for a MH evaluation. Date Signed: 03/11/2018 09:05 PM Electronically Signed By:Nathaly North
[2018-03-11] MEDS ORDERED: NICOTINE 21 MG/24 HR PATCH TD ONE (22:29)
[2018-03-11] MEDS ORDERED: NICOTINE POLACRILEX 2 MG GUM B PRN (22:32)
[2018-03-11] MEDS ORDERED: NICOTINE POLACRILEX 2 MG GUM B ONE (22:33)
[2018-03-11] MEDS ORDERED: LORazepam 1 MG TAB ONE (23:05)
[2018-03-11] MEDS ORDERED: OLANZapine DISINTEGR 10 MG TAB ONE (23:05)
[2018-03-11] MEDS ORDERED: LORazepam 1 MG TAB PO ONE (23:19)
[2018-03-11] MEDS ORDERED: OLANZapine DISINTEGR 10 MG TAB PO ONE (23:19)
[2018-03-11] MEDS ORDERED: DIVALPROEX ER 500 MG TAB PO SCH (23:30)
== END 2018-03-11 23:58 | disposition home or self-care (01) ==
DX: F31.9 Bipolar disorder, unspecified (principal); F20.9 Schizophrenia, unspecified; F17.200 Nicotine dependence, unspecified, uncomplicated; F12.90 Cannabis use, unspecified, uncomplicated
CPT/HCPCS: 80305; G0480

== ENCOUNTER 2018-03-29 18:10 | Emergency (ER) | payer SELFPAY ==
[2018-03-29 18:14] VITALS: BP 116/63
== END 2018-03-29 19:02 | disposition left against medical advice (07) ==
DX: Z53.21 Procedure and treatment not carried out due to patient leaving prior to being seen by health care provider (principal)